=== PATIENT | female | born 1990 | race Two or more races ===

== ENCOUNTER 2022-08-04 18:14 | Emergency (ER) | payer OTHER ==
[~2022-08-04] VITALS: Ht 162.6 cm; Wt 78.9 kg
[2022-08-04 18:55] LABS: Basophils # (auto) 0 10 ^3/uL (0-0.2); Basophils % (auto) 0.5 % (0.0-2.0); Eosinophils # (auto) 0.2 10 ^3/uL (0-0.8); Eosinophils % (auto) 3.5 % (0.0-7.0); Hematocrit 39.5 % (36.0-46.0); Hemoglobin 13.1 g/dL (12.2-16.2); Lymphocytes # (auto) 2.1 10 ^3/uL (0.4-5.4); Lymphocytes % (auto) 29.6 % (10.0-50.0); Mean Corpuscular Hgb Conc. 33.3 g/dL (32.0-36.0); Mean Corpuscular Volume 93.2 fL (80.0-100.0); Monocytes # (auto) 0.5 10 ^3/uL (0-1.3); Monocytes % (auto) 7.5 % (0.0-12.0); Neutrophils # (auto) 4.1 10 ^3/uL (1.6-8.6); Neutrophils % (auto) 58.9 % (37.0-80.0); Nucleated Red Blood Cells % 0.1 %; Red Blood Cells 4.24 10^6/uL (4.0-5.20); Red Cell Distribution Width 13.2 % (11.8-14.3); White Blood Cell 6.9 10^3/uL (4.4-10.8)
[2022-08-04 19:03] VITALS: BP 175/82
[2022-08-04 19:15] LABS: Albumin 3.1 g/dL (3.4-5.0); Calcium 8.9 mg/dL (8.5-10.1); Magnesium 1.8 mg/dL (1.6-2.6); Potassium 3.7 mmol/L (3.5-5.1)
[2022-08-04 19:17] LABS: BUN/Creatinine Ratio 16.1 (10.0-20.0)
[2022-08-04 19:20] LABS: Urine Bacteria NONE SEEN /hpf (None Seen); Urine Blood Negative /uL (Negative); Urine Mucus FEW (None Seen); Urine Specific Gravity 1.033 (1.001-1.035); Urine WBC 4 /hpf (0 - 5)
[2022-08-04 19:20] LABS: Bilirubin, Total 0.3 mg/dL (0.2-1.0)
[2022-08-04 19:24] LABS: INR 0.96 (0.9-1.15); Partial Thromboplastin Time 27.5 sec (24.6-33.4)
== END 2022-08-05 05:29 | disposition left against medical advice (07) ==
LOC: ER 18:14
DX: O41.1210 Chorioamnionitis, first trimester, not applicable or unspecified (principal); R58 Hemorrhage, not elsewhere classified; Z3A.10 10 weeks gestation of pregnancy; Z79.1 Long term (current) use of non-steroidal anti-inflammatories (NSAID)
CPT/HCPCS: 36415; 76801; 80053; 81001; 83735; 83880; 84484; 85025; 85610; 85730; 93005